=== PATIENT | female | born 1980 | race African-American/Black ===

== ENCOUNTER 2017-08-22 10:23 | Emergency (ER) | payer OTHER ==
[~2017-08-22] VITALS: Ht 162.6 cm; Wt 51.3 kg
[2017-08-22] VITALS (10 sets, daily range): BP systolic 109–123; BP diastolic 61–71
[2017-08-22 11:37] LABS: BASOPHIL (%) 0.6 % (0-1); CHLORIDE 106 mEq/L (99-109); EOSINOPHIL (%) 3.4 % (0-5); EOSINOPHIL COUNT 0.2 K/uL (0-0.3); HEMATOCRIT 27.6 % (36.0-46.0); HEMOGLOBIN 7.5 G/DL (11.9-15.5); IMMATURE GRANULOCYTE (%) 0.2 % (0.0-0.7); LYMPHOCYTE (%) 43.9 % (15-42); LYMPHOCYTE COUNT 2.7 K/uL (1.0-2.8); MCH 18.1 PG (29.0-34.0); MCHC 27.2 G/DL (30.0-36.0); MCV 66.5 FL (83-99); MONOCYTE (%) 8.5 % (3-12); MONOCYTE COUNT 0.5 K/uL (0-0.8); NEUTROPHIL (%) 43.4 % (45-76); NEUTROPHIL COUNT 2.7 K/uL (1.8-6.4); PLATELET COUNT 257 K/uL (156-360); POTASSIUM 3.5 mEq/L (3.7-5.4); RBC DIS.WIDTH-CV 22.2 % (11.8-14.6); RBC DIS.WIDTH-SD 52.2 % (39-53); RED BLOOD COUNT 4.15 M/uL (3.80-5.20); SODIUM 139 mEq/L (136-147); WHITE BLOOD COUNT 6.2 K/uL (4.1-10.2)
[2017-08-22 11:39] LABS: GLUCOSE 80 mg/dL (70-99)
[2017-08-22 11:41] LABS: INTER. NORMALIZED RATIO 1.1
[2017-08-22 11:43] LABS: CREATININE 0.8 mg/dL (0.6-1.3); GFR ESTIMATE (CALCULATED) > 59 mL/min/
[2017-08-22 11:44] LABS: PTT 27.6 SEC (25-37); UREA NITROGEN (BUN) 8 mg/dL (9-23)
[2017-08-22 11:49] LABS: TROP-I INTERPRETATION NEGATIVE; TROPONIN-I < 0.01 ng/mL (0.0-0.30)
== END 2017-08-22 19:58 | disposition home or self-care (01) ==
LOC: EME 10:23
PROVIDERS: Emergency Medicine
PROC: 30233N1 Transfusion of Nonautologous Red Blood Cells into Peripheral Vein, Percutaneous Approach (ICD-10-PCS; principal; 2017-08-22)
DX: D64.9 Anemia, unspecified (principal); F17.200 Nicotine dependence, unspecified, uncomplicated
CPT/HCPCS: 71045; 80048; 84484; 85025; 85610; 85730; 86850; 86900; 86901; 86920; 93005; 99281; 99285; P9016